=== PATIENT | female | born 1985 | race Caucasian/White ===

== ENCOUNTER 2024-02-04 08:40 | Emergency (ER) | payer OTHER | END 2024-02-04 10:45 | disposition home or self-care (01) | LOC: JP.ED 08:40 | DX: S52.502A Unspecified fracture of the lower end of left radius, initial encounter for closed fracture (principal); Z86.16 Personal history of COVID-19; Z87.891 Personal history of nicotine dependence; W00.0XXA Fall on same level due to ice and snow, initial encounter | CPT/HCPCS: 73110-LT; 99283 ==